=== PATIENT | male | born 1990 | race African-American/Black ===

== ENCOUNTER 2024-07-22 12:51 | Emergency (ER) | payer MEDICAID ==
[~2024-07-22] VITALS: Ht 182.9 cm; Wt 83.9 kg
[2024-07-22] MEDS ORDERED: MUPI22OI30 TOP (13:45)
--- NOTE | 2024-07-22 13:45 | Physician Documentation ---
History of Present Illness ~ Chief Complaint: Wound Stated Complaint: FOOT WOUNDS Time Seen by MD: 13:15 HPI 34-year-old male presents to the ED with a complaint of a minor laceration on the bottom of his feet. States he was wearing bare [place]. he had a minor laceration approximately 1 cm. in length Day of Onset of Wound: Jul 22, 2024 Review of Systems All Other Systems at this time: Reviewed and Negative ROS As stated above in the HPI, otherwise all systems are reviewed and negative. Physical Exam Vital Signs: Temperature: 98.9, Source: Temporal, Heart Rate: 68, Respiratory Rate: 16, BP: 116/87, Pulse Oximetry: 96, Weight: 83.900 Physical Exam General: Alert, no apparent distress. Extremities: Normal range of motion, no deformity. 1.5 cm laceration bottom left foot. Neurologic: Oriented x4. Psychiatric: Normal mood and affect. Progress Results/Orders Results/Orders Orders - REHAN ZAMORA NP General Nursing Order (07/22/24 ) Vital Signs 07/22/24 13:02 Temp 98.9 Pulse 68 Resp 16 B/P (MAP) 116/87 Pulse Ox 96 Medical Decision Making Findings Minor laceration required some irrigation and cleansing. Based on where it was at and the length of time of the laceration suturing does not seem like the best option. ED nurses clean the wound and placed a bandage on it I will give the patient has some mupirocin to prevent infection Differential Dx:Considerations: Include: Abscess, Cellulitis, Dressing change, Healing wound, Other Departure Disposition: 01 HOME / SELF CARE / HOMELESS Impression: Primary Impression: Wound Condition: Stable Discharge Instructions: How to Change Your Wound Dressing Referrals: NO PRIMARY CARE PROVIDER (PCP) Prescriptions Mupirocin* (Bactroban*) 22 Gm Tube 1 APPLIC TOP Q8H for 5 Days, #15 GM apply to affected area(s) Prov: REHAN ZAMORA NP 07/22/24 Signature Scribe Signature: s Attestation: The note accurately reflects work and decisions made by me.Rehan Zamora - PETRA 07/22/24 13:45 REHAN ZAMORA NP Jul 22, 2024 13:45
[2024-07-22 14:09] VITALS: BP 119/70; PULSE 85; RESP 16; TEMP 98.9; O2SAT 99
== END 2024-07-22 14:10 | disposition home or self-care (01) ==
LOC: ER 12:52
DX: S90.922A Unspecified superficial injury of left foot, initial encounter (principal); X58.XXXA Exposure to other specified factors, initial encounter; Y93.89 Activity, other specified; Y92.89 Other specified places as the place of occurrence of the external cause; Y99.8 Other external cause status
CPT/HCPCS: 99283